=== PATIENT | female | born 1995 | race Two or more races ===

== ENCOUNTER 2017-12-18 08:37 | Emergency (ER) | payer MEDICAID ==
[~2017-12-18] VITALS: Ht 149.9 cm; Wt 66.7 kg
[2017-12-18 08:43] VITALS: BP 107/73
[2017-12-18] MEDS ORDERED: NAPROXEN250 MG ORAL (08:43)
[2017-12-18] MEDS: Ipratropium 0.02% Inh Soln 2.5ml UD HHN SCH ×2 (09:18→09:22)
[2017-12-18] MEDS: Albuterol ud Inhalation HHN SCH ×2 (09:18→09:22)
--- NOTE | 2017-12-18 09:47 | Emergency Room Report ---
History of Present Illness General Chief Complaint: Asthma Source: Patient Present Illness HPI 22-year-old female presents ED complaining of chest tightness, wheezing. History of asthma. Symptoms worsen last night. States she has an inhaler without significant relief. Denies cough. Denies fevers or chills. Denies chest pain. Denies smoking or drug use. No other aggravating relieving factors. Denies any other associated symptoms Allergies: Coded Allergies: Dairy (Verified Allergy, Unknown, 12/18/17) Meat (Verified Allergy, Unknown, 12/18/17) Uncoded Allergies: CHICKEN (Allergy, Unknown, 12/18/17) Patient History Past Medical History: asthma, psych hx Past Surgical History: none Pertinent Family History: none Social History: Denies: smoking, alcohol use, drug use Last Menstrual Period: on period Now: No Immunizations: UTD Reviewed Nursing Documentation: PMH: Agreed; PSxH: Agreed Nursing Documentation-PMH Past Medical History: No History, Except For Hx Asthma: Yes History Of Psychiatric Problem: Yes - depression Review of Systems All Other Systems: negative except mentioned in HPI Physical Exam Vital Signs Date Time Temp Pulse Resp B/P (MAP) Pulse Ox O2 Delivery O2 Flow Rate FiO2 12/18/17 08:40 98.0 67 17 107/73 96 98.1 12/18/17 08:43 Room Air 12/18/17 09:22 21 Sp02 EP Interpretation: reviewed, normal General Appearance: no apparent distress, alert, GCS 15, non-toxic Head: normocephalic Eyes: bilateral eye normal inspection, bilateral eye PERRL ENT: normal ENT inspection Neck: normal inspection Respiratory: chest non-tender, lungs clear, decreased breath sounds, speaking full sentences, wheezing Cardiovascular #1: regular rate, rhythm, no edema Gastrointestinal: normal inspection Rectal: deferred Genitourinary: no CVA tenderness Musculoskeletal: normal inspection Neurologic: alert, oriented x3, responsive, motor strength/tone normal, sensory intact, speech normal Psychiatric: normal inspection Skin: normal inspection Lymphatic: normal inspection Medical Decision Making Diagnostic Impression: Primary Impression: Asthma attack Qualified Codes: J45.901 - Unspecified asthma with (acute) exacerbation ER Course Hospital Course 22-year-old female presents to ED complaining of SOB, wheezing Differential diagnoses include: URI, bronchitis, asthma/COPD, pneumonia Clinical course Patient placed on stretcher. After initial history, physical exam reveals an elderly male in no acute distress. Bilateral TM unremarkable. No pharyngeal erythema. No tonsillar exudates. No lymphadenopathy. Mild wheezing noted on exam, no signs of respiratory distress or retractions. Patient given Prednisone and albuterol/atrovent treatment in ED with symptoms improved. Reassurance given Diagnosis - asthma attack Stable and discharged home with prescriptions for albuterol, nebulizer, prednisone. Instructed to followup with PMD. Return to ED if symptoms recur or worsen Last Vital Signs Date Time Temp Pulse Resp B/P (MAP) Pulse Ox O2 Delivery O2 Flow Rate FiO2 12/18/17 09:22 64 16 99 Room Air 21 12/18/17 08:43 98.1 107/73 98.1 Status: improved Disposition: HOME, SELF-CARE Condition: Stable Scripts Nebulizer/Compressor (COMP-AIR NEBULIZER SYSTEM) 1 Each Each EACH , #1 Prov: Servando Lazar MD 12/18/17 Prednisone* (PREDNISONE*) 20 Mg Tablet 40 MG ORAL DAILY, #10 TAB Prov: Servando Lazar MD 12/18/17 Albuterol Sulfate* (ALBUTEROL SULFATE HHN*) 2.5 Mg/3 Ml Vial.neb 2.5 MG HHN Q4H PRN for Shortness of Breath, #25 VIAL Prov: Servando Lazar MD 12/18/17 Albuterol Sulfate* (ALBUTEROL SULFATE MDI*) 8.5 Gm Hfa.aer.ad 2 PUFF INH Q6H, #1 EA 0 Refills Prov: Servando Lazar MD 12/18/17 Servando Lazar MD Dec 18, 2017 09:47
[2017-12-18] MEDS ORDERED: COMP-AIR NEBUL1 EACH MC (10:12)
[2017-12-18] MEDS ORDERED: ALBUTEROL2.5 MG/3 M HHN (10:12)
[2017-12-18] MEDS ORDERED: PREDNISONE20 MG ORAL (10:12)
[2017-12-18] MEDS ORDERED: ALBUTEROL SULF8.5 GM INH (10:12)
[2017-12-18 10:18] VITALS: BP 110/68
[2017-12-18 10:19] VITALS: BP 110/68
== END 2017-12-18 10:19 | disposition home or self-care (01) ==
LOC: EMR 09:00
DX: R07.89 Other chest pain (principal); J45.909 Unspecified asthma, uncomplicated; F32.9 Major depressive disorder, single episode, unspecified
CPT/HCPCS: 94640; 94664; 99284; J7512

== ENCOUNTER 2018-01-14 10:56 | Emergency (ER) | payer MEDICAID ==
[~2018-01-14] VITALS: Ht 152.4 cm; Wt 66.7 kg
[~2018-01-14 10:56] MED LIST: ALBUTEROL SULF8.5 GM INH; ALBUTEROL2.5 MG/3 M HHN; COMP-AIR NEBUL1 EACH MC; NAPROXEN250 MG ORAL; PREDNISONE20 MG ORAL
[2018-01-14] MEDS ORDERED: Isovue-300 100ml vial INJ PRN (11:15)
--- NOTE | 2018-01-14 11:20 | Emergency Room Report ---
History of Present Illness General Chief Complaint: Abdominal Pain Source: Patient Present Illness HPI This patient complains of abdominal pain. The patient states that she first noted lower abdominal cramping yesterday evening. She states that she also had some brown vaginal discharge at that time. She thought maybe she was starting her menses. However she did not end up starting her menses. She states that she has a history of a right ovarian cyst. She states that this morning she developed worsening pain and cramping in her abdomen. She did have a normal bowel movement. She has had some nausea and vomiting this morning. She states her abdomen is more distended than it usually is. She denies dysuria or hematuria. She states that she gets the Depo-Provera shot for contraception. She denies fever or chills. She denies cough or congestion. She denies chest pain or shortness of breath. She has no other complaints. Allergies: Coded Allergies: Dairy (Verified Allergy, Unknown, 12/18/17) Meat (Verified Allergy, Unknown, 12/18/17) Uncoded Allergies: CHICKEN (Allergy, Unknown, 12/18/17) Patient History Past Medical History: none, asthma Past Surgical History: none Social History: Denies: smoking, alcohol use, drug use Last Menstrual Period: 2 months ago Reviewed Nursing Documentation: PMH: Agreed; PSxH: Agreed Nursing Documentation-PMH Past Medical History: No History, Except For Hx Asthma: Yes Review of Systems All Other Systems: negative except mentioned in HPI Physical Exam Vital Signs Date Time Temp Pulse Resp B/P (MAP) Pulse Ox O2 Delivery O2 Flow Rate FiO2 01/14/18 11:06 98.1 74 14 110/72 96 Room Air 98.1 Sp02 EP Interpretation: reviewed, normal General Appearance: no apparent distress, alert, GCS 15, non-toxic Head: normocephalic, atraumatic Eyes: bilateral eye normal inspection, bilateral eye PERRL ENT: hearing grossly normal, normal pharynx, no angioedema, normal voice Neck: full range of motion, supple/symm/no masses Respiratory: chest non-tender, lungs clear, normal breath sounds, no respiratory distress, no retraction, no accessory muscle use, speaking full sentences Cardiovascular #1: regular rate, rhythm, no edema Gastrointestinal: normal bowel sounds, soft, non-distended, no guarding, no rebound, tenderness - Diffusely TTP throughout. Rectal: deferred Musculoskeletal: back normal, gait/station normal, normal range of motion, non- tender Neurologic: alert, oriented x3, responsive, motor strength/tone normal, sensory intact, speech normal Psychiatric: judgement/insight normal, memory normal, mood/affect normal, no suicidal/homicidal ideation Skin: normal color, no rash, warm/dry, well hydrated Medical Decision Making Diagnostic Impression: Primary Impression: Abdominal pain Additional Impressions: Ovarian cyst UTI (urinary tract infection) ER Course This patient has diffuse abdominal pain. I was concerned about the patient's history of ovarian cyst, so I did obtain an ultrasound of the pelvis. There was no evidence of ovarian origin or enlargement of the ovarian cyst on the right ovary. There was a 2.7 cm cyst there. The patient also underwent CT of the abdomen and pelvis given how tender she was on palpation. This was also unremarkable. There is no evidence of appendicitis or other emergency etiology. Possibly the patient is having premenstrual cramps given the patient did have some spotting. Further discussion with this patient after her workup reveals that she did have intercourse with another person that was unwanted and could be at risk for sexually transmitted disease. After further discussion, she agreed to undergo presumptive treatment for STDs. She was educated that this would not treat HIV or syphilis. She indicated understanding. She was instructed to follow-up closely with her primary care physician in her primary [facility] for a proper pelvic exam/Pap smear and further evaluation. She indicated understanding and intention to do so. Laboratory Tests Test 01/14/18 11:20 01/14/18 11:55 White Blood Count 8.8 K/UL (4.8-10.8) Red Blood Count 5.22 M/UL (4.20-5.40) Hemoglobin 12.5 G/DL (12.0-16.0) Hematocrit 40.1 % (37.0-47.0) Mean Corpuscular Volume 77 FL (80-99) L Mean Corpuscular Hemoglobin 24.0 PG (27.0-31.0) L Mean Corpuscular Hemoglobin Concent 31.2 G/DL (32.0-36.0) L Red Cell Distribution Width 12.7 % (11.6-14.8) Platelet Count 358 K/UL (150-450) Mean Platelet Volume 6.3 FL (6.5-10.1) L Neutrophils (%) (Auto) 70.2 % (45.0-75.0) Lymphocytes (%) (Auto) 23.3 % (20.0-45.0) Monocytes (%) (Auto) 5.5 % (1.0-10.0) Eosinophils (%) (Auto) 0.3 % (0.0-3.0) Basophils (%) (Auto) 0.7 % (0.0-2.0) Prothrombin Time 10.9 SEC (9.30-11.50) Prothrombin Time INR 1.0 (0.9-1.1) PTT 32 SEC (23-33) Sodium Level 141 MMOL/L (136-145) Potassium Level 3.7 MMOL/L (3.5-5.1) Chloride Level 105 MMOL/L (98-107) Carbon Dioxide Level 27 MMOL/L (21-32) Anion Gap 9 mmol/L (5-15) Blood Urea Nitrogen 9 mg/dL (7-18) Creatinine 0.6 MG/DL (0.55-1.30) Estimate Glomerular Filtration Rate > 60 mL/min (>60) Glucose Level 93 MG/DL (74-106) Calcium Level 9.2 MG/DL (8.5-10.1) Total Bilirubin 0.5 MG/DL (0.2-1.0) Aspartate Amino Transferase (AST) 25 U/L (15-37) Alanine Aminotransferase (ALT) 24 U/L (12-78) Alkaline Phosphatase 70 U/L (46-116) Total Protein 7.9 G/DL (6.4-8.2) Albumin 4.0 G/DL (3.4-5.0) Globulin 3.9 g/dL Albumin/Globulin Ratio 1.0 (1.0-2.7) Human Chorionic Gonadotropin, Quant 1 mIU/mL (1-6) Urine Color Yellow Urine Appearance Slightly cloudy Urine pH 6 (4.5-8.0) Urine Specific [place] 1.020 (1.005-1.035) Urine Protein 1+ (NEGATIVE) H Urine Glucose (UA) Negative (NEGATIVE) Urine Ketones 1+ (NEGATIVE) H Urine Blood Negative (NEGATIVE) Urine Nitrite Negative (NEGATIVE) Urine Bilirubin Negative (NEGATIVE) Urine Urobilinogen Normal MG/DL (0.0-1.0) Urine Leukocyte Esterase 3+ (NEGATIVE) H Urine RBC 0-2 /HPF (0 - 2) Urine WBC 5-10 /HPF (0 - 2) H Urine Squamous Epithelial Cells Moderate /LPF (NONE/OCC) H Urine Bacteria Few /HPF (NONE) CT/MRI/US Diagnostic Results CT/MRI/US Diagnostic Results : Imaging Test Ordered: US pelvis, CT abd/pelvis Impression 2.7 cm R. ovarian cyst. See EMR for official report. No acute findings. Last Vital Signs Date Time Temp Pulse Resp B/P (MAP) Pulse Ox O2 Delivery O2 Flow Rate FiO2 01/14/18 11:06 98.1 74 14 110/72 96 Room Air 98.1 Status: improved Disposition: HOME, SELF-CARE Condition: Improved Ilene Patino DO Jan 14, 2018 11:20
[2018-01-14 11:45] LABS: BASOPHILS % (AUTO) 0.7 % (0.0-2.0); EOSINOPHILS % (AUTO) 0.3 % (0.0-3.0); HEMATOCRIT 40.1 % (37.0-47.0); HEMOGLOBIN 12.5 G/DL (12.0-16.0); LYMPHOCYTES % (AUTO) 23.3 % (20.0-45.0); MEAN CORPUSCULAR VOLUME 77 FL (80-99); MONOCYTES % (AUTO) 5.5 % (1.0-10.0); NEUTROPHILS % (AUTO) 70.2 % (45.0-75.0); PLATELET COUNT 358 K/UL (150-450); RED BLOOD COUNT 5.22 M/UL (4.20-5.40); RED CELL DISTRIBUTION WIDTH 12.7 % (11.6-14.8); WHITE BLOOD COUNT 8.8 K/UL (4.8-10.8)
[2018-01-14 11:51] LABS: ANION GAP 9 mmol/L (5-15); BLOOD UREA NITROGEN 9 mg/dL (7-18); CALCIUM 9.2 MG/DL (8.5-10.1); CARBON DIOXIDE 27 MMOL/L (21-32); CHLORIDE 105 MMOL/L (98-107); CREATININE 0.6 MG/DL (0.55-1.30); POTASSIUM 3.7 MMOL/L (3.5-5.1); SODIUM 141 MMOL/L (136-145)
[2018-01-14 11:55] LABS: ALANINE AMINOTRANSFERASE 24 U/L (12-78); ALKALINE PHOSPHATASE 70 U/L (46-116); ASPARTATE AMINO TRANSFERASE 25 U/L (15-37); BILIRUBIN,TOTAL 0.5 MG/DL (0.2-1.0)
[2018-01-14 12:07] LABS: APPEARANCE,URINE SLIGHTLY CLOUDY; BILIRUBIN, URINE NEGATIVE (NEGATIVE); GLUCOSE, URINE (UA) NEGATIVE (NEGATIVE); KETONES,URINE 1+ (NEGATIVE); LEUKOCYTE ESTERASE ,URINE 3+ (NEGATIVE); NITRITE,URINE NEGATIVE (NEGATIVE); PH,URINE 6 (4.5-8.0); PROTEIN,URINE 1+ (NEGATIVE); UROBILINOGEN,URINE NORMAL MG/DL (0.0-1.0)
[2018-01-14 12:08] LABS: COLOR,URINE YELLOW
[2018-01-14] MEDS ORDERED: Ketorolac 30mg Inj IV ONE (13:45)
--- NOTE | 2018-01-14 14:07 | Diagnostic Imaging Report ---
Clinical Indication: Abdominal pain, lower abdominal cramping since yesterday evening Technique: No oral contrast utilized, per emergency room physician request IV administration nonionic contrast. Venous phase spiral acquisition obtained through the abdomen and pelvis. Multiplanar reconstructions were generated. Total dose length product 545.01 mGycm. CTDIvol(s) 11.22 mGy. Dose reduction achieved using automated exposure control Comparison: none Findings: Normal appendix. No evidence of diverticulosis or diverticulitis. No small bowel distention. No free or loculated intraperitoneal gas or fluid is evident. Distal esophagus, stomach, duodenum are unremarkable. The liver, gallbladder, bile ducts, pancreas, spleen, adrenals, kidneys are all unremarkable. No retroperitoneal or mesenteric mass or adenopathy. The right ovary contains a 2.7 cm cyst, presumably a dominant follicle. The ovary enhances normally. The left ovary is unremarkable. The uterus is unremarkable. No pelvic mass or adenopathy demonstrated. The included lung bases are clear. The bones are unremarkable. The bladder is equivocally mildly thick-walled, but this is probably an artifact of under distention Impression: Essentially unremarkable exam. No acute or significant abnormality demonstrated. The CT scanner at [facility] is accredited by the [employer] and the scans are performed using protocols designed to limit radiation exposure to as low as reasonably achievable to attain images of sufficient resolution adequate for diagnostic evaluation.
--- NOTE | 2018-01-14 14:13 | Diagnostic Imaging Report ---
Indication: Lower abdominal pain, nausea, vomiting, non patient Technique: Transabdominal and transvaginal images Comparison: none Findings: Uterus measures 7.4 cm length by 4.7 cm AP. Endometrium measures 2 mm thick. No myometrial abnormality. Right ovary measures 4 cm in length, contains a 2.8 cm presumed dominant follicle or functional cyst. Left ovary measures 3.3 cm in length both ovaries demonstrate normal blood flow. No free cul-de-sac fluid Impression: 2.8 cm cyst in the right ovary, presumably a dominant follicle, could be a functional cyst given stated clinical history of right ovarian cyst Otherwise unremarkable
[2018-01-14] MEDS ORDERED: IBUPROFEN800 MG ORAL (14:24)
[2018-01-14] MEDS ORDERED: NITROFURANTOIN100 M2 ORAL (14:24)
[2018-01-14] MEDS ORDERED: DIFLUCAN200 MG ORAL (14:24)
[2018-01-14] MEDS ORDERED: Lidocaine 1% MPF 10mg/ml 5ml INJ ONE (14:30)
[2018-01-14] MEDS ORDERED: Azithromycin 250mg tab ORAL ONE (14:30)
[2018-01-14 14:39] VITALS: BP 126/85
== END 2018-01-14 14:39 | disposition home or self-care (01) ==
LOC: EMR 11:36
DX: N83.201 Unspecified ovarian cyst, right side (principal); N39.0 Urinary tract infection, site not specified; J45.909 Unspecified asthma, uncomplicated; Z91.018 Allergy to other foods; Z91.011 Allergy to milk products
CPT/HCPCS: 36415; 74177; 76830; 76856; 80053; 81003; 84702; 85025; 85610; 85730; 96361; 96372; 96374; 99284; J0696; J1885; Q0144; Q9967

== ENCOUNTER 2018-04-02 09:12 | Emergency (ER) | payer MEDICAID, OTHER ==
[~2018-04-02] VITALS: Ht 152.4 cm; Wt 72.6 kg
[~2018-04-02 09:12] MED LIST changes: +DIFLUCAN200 MG ORAL; +IBUPROFEN800 MG ORAL; +NITROFURANTOIN100 M2 ORAL
[2018-04-02 09:26] VITALS: BP 115/62
--- NOTE | 2018-04-02 09:29 | Emergency Room Report ---
History of Present Illness General Chief Complaint: Asthma Source: Patient Present Illness HPI Patient presents with complaints that she feels the change in weather has affected her asthma Patient feels that she is having an exacerbation and her inhaler at home was not helping very much Denies any chest pain denies any cough She feels tightness when breathing Denies any flank pain denies any pleurisy Denies any upper respiratory infection such as runny nose or sneezing Patient felt that her sinuses were mildly irritated as well Allergies: Coded Allergies: Dairy (Verified Allergy, Unknown, 12/18/17) Meat (Verified Allergy, Unknown, 12/18/17) Uncoded Allergies: CHICKEN (Allergy, Unknown, 12/18/17) Patient History Past Medical History: see triage record Pertinent Family History: none Now: Yes Reviewed Nursing Documentation: PMH: Agreed; PSxH: Agreed Nursing Documentation-PMH Past Medical History: No History, Except For Hx Asthma: Yes Review of Systems All Other Systems: negative except mentioned in HPI Physical Exam Vital Signs Date Time Temp Pulse Resp B/P (MAP) Pulse Ox O2 Delivery O2 Flow Rate FiO2 04/02/18 09:19 99.0 85 20 115/62 97 Room Air Sp02 EP Interpretation: reviewed, normal General Appearance: well appearing, no apparent distress Head: normocephalic, atraumatic Eyes: bilateral eye PERRL, bilateral eye EOMI ENT: hearing grossly normal, normal pharynx, TMs + canals normal, uvula midline Neck: full range of motion, supple, no meningismus, no bony tend Respiratory: no rhonchi, no respiratory distress, no retraction, no accessory muscle use, wheezing - Very fine wheezing bilateral lower lobes Cardiovascular #1: normal peripheral pulses, regular rate, rhythm, no edema, no gallop, no JVD, no murmur Gastrointestinal: normal bowel sounds, non tender, soft, no mass, no organomegaly, non-distended, no guarding, no hernia, no pulsatile mass, no rebound Genitourinary: no CVA tenderness Musculoskeletal: normal inspection Neurologic: oriented x3, responsive, marketing content coordinator III-XII nml as tested, motor strength/ tone normal, sensory intact Psychiatric: mood/affect normal Skin: normal color, no rash, warm/dry, palpation normal Lymphatic: normal inspection, no adenopathy Medical Decision Making Diagnostic Impression: Primary Impression: Asthma attack ER Course Patient was provided with breathing treatment and antihistamine medicine At a later time I have been notified of the patient is this was not initially provided to me patient did not mention this Other differentials such as pulmonary ambles him or cardiac pathology are also entertained given the need information however patient remained stable respirations are appropriate appears to have flareup of her baseline asthma exacerbation And will have initial conservative outpatient trial Last Vital Signs Date Time Temp Pulse Resp B/P (MAP) Pulse Ox O2 Delivery O2 Flow Rate FiO2 04/02/18 09:19 99.0 85 20 115/62 97 Room Air Status: improved Disposition: HOME, SELF-CARE Condition: Improved Scripts Metoclopramide Hcl* (REGLAN*) 5 Mg Tablet 5 MG ORAL EVERY 12 HOURS, #7 TAB Prov: Ban Pompa DO 04/02/18 Prednisone* (PREDNISONE*) 20 Mg Tablet 20 MG ORAL BID, #10 TAB Prov: Ban Pompa DO 04/02/18 Albuterol Sulfate* (ALBUTEROL SULFATE MDI*) 8.5 Gm Hfa.aer.ad 2 PUFF INH Q6H, #1 EA 0 Refills Prov: Ban Pompa DO 04/02/18 Additional Instructions: Patient is provided with the discharge instructions notified to follow up with primary doctor in the next 2-3 days otherwise return to the er with any worsening symptoms. Please note that this report is being documented using [employer] technology. This can lead to erroneous entry secondary to incorrect interpretation by the dictating instrument. Ban Pompa DO Apr 02, 2018 09:29
[2018-04-02] MEDS ORDERED: Ipratropium 0.02% Inh Soln 2.5ml UD HHN ONE (09:30)
[2018-04-02] MEDS ORDERED: Albuterol ud Inhalation HHN ONE (09:30)
[2018-04-02] MEDS ORDERED: PREDNISONE20 MG ORAL (09:42)
[2018-04-02] MEDS ORDERED: ALBUTEROL SULF8.5 GM INH (09:42)
[2018-04-02] MEDS ORDERED: REGLAN5 MG ORAL (09:53)
[2018-04-02 09:56] VITALS: BP 121/68
[2018-04-02 09:57] VITALS: BP 121/68
== END 2018-04-02 09:57 | disposition home or self-care (01) ==
LOC: EMR 09:54
DX: J45.901 Unspecified asthma with (acute) exacerbation (principal)
CPT/HCPCS: 94640; 94664; 99284

== ENCOUNTER 2018-05-30 05:53 | Emergency (ER) | payer MEDICAID, OTHER ==
[~2018-05-30] VITALS: Ht 160 cm; Wt 72.6 kg
[~2018-05-30 05:53] MED LIST changes: +REGLAN5 MG ORAL
[2018-05-30 06:00] VITALS: BP 112/62
--- NOTE | 2018-05-30 06:00 | NUR ---
ED Nurse Note: pt was brought in by ambulance c/o of vomiting x 2 days.pt stated she is vomiting a small amount of blood and she was diagnosed with hyperemesis gravidarum, denies diarrhea denies abd pain. pt stated she is 13 weeks . pt complaining of chest and throat part pain 5/10 when coughing. seen by ermd. will continue to monitor.
--- NOTE | 2018-05-30 06:03 | NUR ---
ED Nurse Note: ermd order, iv g 20 inserted on right ac with good blood return, blood drawn and sent to lab iv reglan given, iv d5ns started. pt unable to give urine sample. pt stated that he haven not urinating since 8 hours ago. will continue to monitor.
[2018-05-30] MEDS ORDERED: D5NS 1,000 ML IV ONE (06:15)
[2018-05-30] MEDS ORDERED: Metoclopramide 10mg/2ml Inj IVP ONE (06:15)
[2018-05-30 06:34] LABS: BASOPHILS % (AUTO) 0.8 % (0.0-2.0); EOSINOPHILS % (AUTO) 0.3 % (0.0-3.0); HEMATOCRIT 37.8 % (37.0-47.0); HEMOGLOBIN 12.4 G/DL (12.0-16.0); LYMPHOCYTES % (AUTO) 10.4 % (20.0-45.0); MEAN CORPUSCULAR VOLUME 79 FL (80-99); MONOCYTES % (AUTO) 4.5 % (1.0-10.0); PLATELET COUNT 224 K/UL (150-450); RED BLOOD COUNT 4.76 M/UL (4.20-5.40); RED CELL DISTRIBUTION WIDTH 14.2 % (11.6-14.8); WHITE BLOOD COUNT 5.7 K/UL (4.8-10.8)
--- NOTE | 2018-05-30 06:34 | Emergency Room Report ---
History of Present Illness General Chief Complaint: Vomiting Source: Patient, EMS (Markel Quezada MD) Present Illness HPI This is a 23-year-old female who is 4, para 1, A2, who is 13 weeks . She presents with chief complaint of nausea vomiting. She felt dehydrated. Unable to keep anything down for the last 8 hours. Also no urination. Similar symptom 2 days ago when she was at another hospital. Ultrasound then showed normal with good heart tone. Similar symptom in the past. No vaginal bleeding or cramps. (Markel Quezada MD) Allergies: Coded Allergies: Dairy (Verified Allergy, Unknown, 12/18/17) Meat (Verified Allergy, Unknown, 12/18/17) Uncoded Allergies: CHICKEN (Allergy, Unknown, 12/18/17) Patient History Past Medical History: see triage record, old chart reviewed Past Surgical History: other Pertinent Family History: none Social History: Denies: smoking Now: Yes - 13 weeks Immunizations: other Reviewed Nursing Documentation: PMH: Agreed; PSxH: Agreed (Markel Quezada MD) Nursing Documentation-PMH Hx Asthma: Yes (Markel Quezada MD) Review of Systems Eye: Denies: eye pain, blurred vision ENT: Denies: ear pain, nose congestion, throat swelling Respiratory: Denies: cough, shortness of breath Cardiovascular: Denies: chest pain, palpitations Gastrointestinal: Reports: nausea, vomiting; Denies: abdominal pain, diarrhea Musculoskeletal: Denies: back pain, joint pain Skin: Denies: rash Neurological: Denies: headache, numbness Endocrine: Denies: increased thirst, increased urine Hematologic/Lymphatic: Denies: easy bruising All Other Systems: negative except mentioned in HPI (Markel Quezada MD) Physical Exam Vital Signs Date Time Temp Pulse Resp B/P (MAP) Pulse Ox O2 Delivery O2 Flow Rate FiO2 05/30/18 05:55 98.1 90 18 98/62 96 Room Air vitals unremarkable Sp02 EP Interpretation: reviewed, normal General Appearance: well appearing, no apparent distress, alert Head: normocephalic, atraumatic Eyes: bilateral eye PERRL, bilateral eye EOMI ENT: hearing grossly normal, normal pharynx Neck: full range of motion, supple, no meningismus Respiratory: chest non-tender, lungs clear, normal breath sounds Cardiovascular #1: regular rate, rhythm, no murmur Gastrointestinal: normal bowel sounds, non tender, no mass, no organomegaly, no bruit, non-distended Musculoskeletal: back normal, gait/station normal, normal range of motion Psychiatric: mood/affect normal Skin: warm/dry (Markel Quezada MD) Medical Decision Making Diagnostic Impression: Primary Impression: Hyperemesis gravidarum ER Course Patient presents with hyperemesis gravidarum. We'll hydrate patient. We will check labs to make sure there is no dehydration. If normal can be discharged home. Patient just had ultrasound done 2 days ago. I see no need for repeat since she has no bleeding or pain. Signout to Dr. Lazar for final disposition. (Markel Quezada MD) ER Course Hospital Course 23 yo F with multiple episodes of vomiting. 13 weeks Patient initially seen and evaluated by Dr Quezada; please see his note for full history and physical Clinical course patient ordered IVfs, reglan Labs - no leukocytosis, no electrolyte abnormalities, LFTs normal, UA unremarkable Upon reassessment, patient states she feels better. No electrolyte abnormalities. Vital stable. No signs of UTI. No spotting or cramping pains. Patient had ultrasound 2 days ago which was unremarkable. I see no reason to repeat ultrasound at this time. Patient will be discharged with Reglan and Zantac. 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 Safe for discharge with close outpatient follow-up I feel this is a highly complex case requiring extensive working including EKG/ Rhythm strip, Xray/CT/US, Blood/urine lab work, repeat exams while in ED, and administration of strong opiates/narcotics for pain control, admission to hospital or close patient follow up. Diagnosis - hyperemesis gravidum Stable and discharged to home with prescriptions for zantac, reglan. Followup with PMD/OBGYN. Return to ED if symptoms recur or worsen Labs Test 05/30/18 06:13 05/30/18 06:52 White Blood Count 5.7 K/UL (4.8-10.8) Red Blood Count 4.76 M/UL (4.20-5.40) Hemoglobin 12.4 G/DL (12.0-16.0) Hematocrit 37.8 % (37.0-47.0) Mean Corpuscular Volume 79 FL (80-99) Mean Corpuscular Hemoglobin 26.1 PG (27.0-31.0) Mean Corpuscular Hemoglobin Concent 32.9 G/DL (32.0-36.0) Red Cell Distribution Width 14.2 % (11.6-14.8) Platelet Count 224 K/UL (150-450) Mean Platelet Volume 6.4 FL (6.5-10.1) Neutrophils (%) (Auto) 84.0 % (45.0-75.0) Lymphocytes (%) (Auto) 10.4 % (20.0-45.0) Monocytes (%) (Auto) 4.5 % (1.0-10.0) Eosinophils (%) (Auto) 0.3 % (0.0-3.0) Basophils (%) (Auto) 0.8 % (0.0-2.0) Sodium Level 136 MMOL/L (136-145) Potassium Level 3.6 MMOL/L (3.5-5.1) Chloride Level 101 MMOL/L (98-107) Carbon Dioxide Level 25 MMOL/L (21-32) Anion Gap 10 mmol/L (5-15) Blood Urea Nitrogen 5 mg/dL (7-18) Creatinine 0.6 MG/DL (0.55-1.30) Estimat Glomerular Filtration Rate > 60 mL/min (>60) Glucose Level 87 MG/DL (74-106) Calcium Level 9.3 MG/DL (8.5-10.1) Urine Color Pale yellow Urine Appearance Clear Urine pH 6.5 (4.5-8.0) Urine Specific [place] 1.015 (1.005-1.035) Urine Protein 1+ (NEGATIVE) Urine Glucose (UA) 3+ (NEGATIVE) Urine Ketones Negative (NEGATIVE) Urine Blood Negative (NEGATIVE) Urine Nitrite Negative (NEGATIVE) Urine Bilirubin Negative (NEGATIVE) Urine Urobilinogen Normal MG/DL (0.0-1.0) Urine Leukocyte Esterase 1+ (NEGATIVE) Urine RBC 0-2 /HPF (0 - 2) Urine WBC 2-4 /HPF (0 - 2) Urine Squamous Epithelial Cells Moderate /LPF (NONE/OCC) Urine Bacteria Few /HPF (NONE) (Servando Lazar MD) Last Vital Signs Date Time Temp Pulse Resp B/P (MAP) Pulse Ox O2 Delivery O2 Flow Rate FiO2 05/30/18 06:00 98.0 95 19 112/62 99 Room Air Status: improved (Markel Quezada MD) Status: improved (Servando Lazar MD) Disposition: HOME, SELF-CARE Condition: Stable Scripts Ranitidine Hcl* (ZANTAC*) 150 Mg Tablet 150 MG ORAL TWICE A DAY, #30 TAB Prov: Servando Lazar MD 05/30/18 Metoclopramide Hcl* (REGLAN*) 10 Mg Tablet 10 MG ORAL THREE TIMES A DAY, #20 TAB Prov: Servando Lazar MD 05/30/18 Referrals: NOT CHOSEN IPA/,REFERRING (PCP) Markel Quezada MD May 30, 2018 06:34 Servando Lazar MD May 30, 2018 08:40
[2018-05-30 06:47] LABS: ANION GAP 10 mmol/L (5-15); BLOOD UREA NITROGEN 5 mg/dL (7-18); CALCIUM 9.3 MG/DL (8.5-10.1); CARBON DIOXIDE 25 MMOL/L (21-32); CHLORIDE 101 MMOL/L (98-107); CREATININE 0.6 MG/DL (0.55-1.30); POTASSIUM 3.6 MMOL/L (3.5-5.1); SODIUM 136 MMOL/L (136-145)
[2018-05-30 07:17] LABS: APPEARANCE,URINE CLEAR; BILIRUBIN, URINE NEGATIVE (NEGATIVE); COLOR,URINE PALE YELLOW; GLUCOSE, URINE (UA) 3+ (NEGATIVE); KETONES,URINE NEGATIVE (NEGATIVE); LEUKOCYTE ESTERASE ,URINE 1+ (NEGATIVE); NITRITE,URINE NEGATIVE (NEGATIVE); PH,URINE 6.5 (4.5-8.0); PROTEIN,URINE 1+ (NEGATIVE); UROBILINOGEN,URINE NORMAL MG/DL (0.0-1.0)
[2018-05-30 07:24] VITALS: BP 114/64
--- NOTE | 2018-05-30 07:25 | NUR ---
ED Nurse Note: Received pt from [facility]. Pt is in bed, relaxing. AOx4, vial signs stable. No signs of acute distress. IV fluid D/C. Will cont to monitor.
[2018-05-30] MEDS ORDERED: REGLAN10 MG ORAL (07:52)
[2018-05-30] MEDS ORDERED: RANITIDINE HCL150 MG ORAL (07:55)
[2018-05-30 08:10] VITALS: BP 114/64
--- NOTE | 2018-05-30 08:10 | NUR ---
ED Nurse Note: Pt is clear to be discharged by ERMD. Discharge paper and prescription given, pt verbalized understanding of discharge instruction. AOx4, VSS. Wristband and IV line removed. Pt ambulated out with steady gait withh all belongings.
== END 2018-05-30 08:10 | disposition home or self-care (01) ==
LOC: EDBD 05:53 → EMR 06:20
DX: O21.0 Mild hyperemesis gravidarum (principal); Z3A.13 13 weeks gestation of pregnancy; Z91.011 Allergy to milk products; Z91.018 Allergy to other foods
CPT/HCPCS: 36415; 80048; 81003; 85025; 96365; 96375; 99284; J2765